=== PATIENT | female | born 1980 | race Caucasian/White ===

== ENCOUNTER 2016-07-20 12:16 | Observation (INO) | payer OTHER ==
--- NOTE | ~2016-07-20 | DS ---
Discharge Summary [facility] [address] [place]. [address] NAME: KAT MORRIS : 82 STATUS : DIS Marlon PAT#: [id number] AGE: 36 ADM/REG DATE : 07/20/16 MR#: [id number] REPORT SERV DATE: 07/22/16 DICTATED BY: SHARON TORO DATE: 07/21/16 REPORT STATUS : Draft TRANSCRIBED BY: MODL DATE: 07/21/16 ADMISSION DATE: 07/20/2016 DISCHARGE DATE: 07/21/2016 PRINCIPAL DIAGNOSIS: Drug eruption due to uncertain antibiotics. SECONDARY DIAGNOSES: Recent xook-tpkj-mtbzp disease and depression. PRESENT ILLNESS: Please see my dictation of 07/20/2016. HOSPITAL COURSE: Admitted with a drug eruption after been on sequential antibiotics for various infections, most prominent of which apparently may not have been strep throat but instead opkl-sgyf-ncqjk disease. The patient had a diffuse maculopapular rash, received steroids with substantial improvement in the rash by 07/21, and she was able to return home. She also felt better with propranolol being changed to atenolol, being non-blood brain barrier crossing in the setting of her depression. She is recommended to discontinue lisinopril, Valium, minocycline, nitrofurantoin, and ciprofloxacin until she follows up with an hospital ward clerk but that arrangements can be made through [facility] with whom she will follow up later on this week for confirmation of the rash has continued to wane. She will finish a five-day course of prednisone 40 mg. BERNADINE/OLIVIA Sharon Toro M.D. / [id number] CC: Cherie Russell M.D.
--- NOTE | ~2016-07-20 | HP ---
History And Physical [facility] [id number] [place]. [address] NAME: KAT MORRIS : 82 STATUS : ADM Marlon PAT#: [id number] AGE: 36 ADM/REG DATE : 07/20/16 MR#: [id number] REPORT SERV DATE: 07/20/16 DICTATED BY: SHARON TORO DATE: 07/20/16 REPORT STATUS : Draft TRANSCRIBED BY: MODL DATE: 07/20/16 DATE OF ADMISSION: 07/20/2016 REASON FOR ADMISSION: Drug eruption. HISTORY OF PRESENT ILLNESS: Ms. Morris is a 36-year-old female with a history of hypertension. She is status post UTI diagnosis. Three weeks ago at her primary care provider's office, received Cipro. The patient actually had some chest pain while on the Cipro, was in the emergency department at [facility] where she feels like she got influenza. Did not receive treatment for that, but as it had been too late to benefit from Tamiflu by the time she re- emerged to her primary care provider's office. However, urine still resulted pyuria, and Macrobid was prescribed on 07/10/2016 which she took until 07/16/2016. In the meantime, however on 07/14/2016 admission, noted a rash on those palms and soles of her feet, itching and burning. She followed up at the primary care provider's office on 07/15/2016. During the interim time, she had developed a sore throat. She was prescribed minocycline. The patient had already had some evidence of maculopapular rash on her trunk. This has progressed over the course of the time that she had been on the minocycline with itchiness, burning, chills, but no fever. Meanwhile, her throat feels better. There has been some joint pain and headaches. The chest pain actually persisted, but had a negative workup with a negative stress echo recently. The patient denies any more of dysuria. No diarrhea. She says the hands and feet are actually gotten much better, and do become scaly without desquamation. She notices no mouth lesions or mucous membrane lesions of her genitals. REVIEW OF SYSTEMS: The remainder of the review of systems is negative. PAST MEDICAL HISTORY: As mentioned above. Negative stress echo on 07/18/2016. MEDICATIONS: Diazepam, lisinopril, minocycline and Macrobid, all of which were new. She had been on Inderal for about a year. Also takes Seroquel and Zoloft chronically. 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 HAS A HISTORY OF ANAPHYLACTIC REACTION TO PENICILLIN, AND HAS BEEN ON AN ALLERGY TO THE DURAGESIC WELL. FAMILY HISTORY: Very strong for allergic reaction. SOCIAL HISTORY: The patient is a smoker. PHYSICAL EXAMINATION: VITAL SIGNS: At the presentation, blood pressure 137/72, pulse 91, respirations 18, afebrile, saturating 100%. GENERAL: Awake, alert, and oriented x3. No apparent distress. HEENT: Pupils are reactive to light. Extraocular movements are intact. No current deficits. Moist mucous membranes. Oropharynx, there were no lesions in her throat, nor any ulcerations of any kind. NECK: Revealed no lymphadenopathy without jugular venous distention, carotid bruits, or History And Physical [address] [address] NAME: KAT MORRIS : 82 STATUS : ADM Marlon PAT#: [id number] AGE: 36 ADM/REG DATE : 07/20/16 MR#: [id number] REPORT SERV DATE: 07/20/16 DICTATED BY: SHARON TORO DATE: 07/20/16 REPORT STATUS : Draft TRANSCRIBED BY: OLIVIA DATE: 07/20/16 goiter. CARDIAC: Regular rhythm. No murmurs, gallops, or rubs. LUNGS: Clear to auscultation bilaterally. Good excursion. ABDOMEN: Obese, nondistended and nontender. Bowel sounds normoactive. EXTREMITIES: No cyanosis, clubbing, or edema. Good pulses and capillary refill. NEUROLOGIC: Normal sensory and motor function in all four extremities. SKIN: Exam was remarkable for a diffuse maculopapular rash, particularly on her trunk, decreasing centripetally. She had some evidence of some scaly lesions on her soles, particularly very little hard to see anything on the palms where she said she has had blistering a week prior. PSYCHIATRIC: Appropriate. LABORATORY EVALUATION: Sodium 37, potassium 4.8, chloride 103, bicarb 24, BUN 14, creatinine 0.8, glucose 104. White count 20101, H and H 15/45, platelets of 175, positive for eosinophilia. ASSESSMENT/PLAN: 1. Drug eruption. It is not clear what she is allergic to as she has been exposed to many new medications in the recent past. Has a history of severe medication intolerance. In any event, all of her new medications will all be discontinued. We will treat her empirically with steroids as I believe that the maculopapular rash is a drug eruption and not scarlet fever at all. I do not believe this is consistent both either phenotypically or in terms of natural history for neither Tan-Pal syndrome nor toxic epidermal necrolysis. The question of the lesions on the palms and soles to be associated with a sore throat, I suspect she had acute twbd-fxcf-ddhtu disease, but had a false positive streptococcal test, likely could be due to her being a carrier. This seems to have resolved with the typical time course of hand, foot, and mouth. 2. Depression. Continue Seroquel and Zoloft. Propranolol, however is not recommended in depression due to crossing the blood brain barrier and having depression itself as a major side effect. We can change this to atenolol. 3. Hypertension. We will keep her off lisinopril at this time and dose the atenolol accordingly. RSM/MODL Sharon Toro M.D. / [id number] CC: Matthieu Franco Jr, MD
[2016-07-20 10:54] LABS: BASOPHILS 0.3 %; BASOPHILS ABSOLUTE 0.04 10/3/uL (0.0-0.16); EOSINOPHILS 9.2 %; EOSINOPHILS ABSOLUTE 1.17 10/3/uL (0.0-0.53); HEMATOCRIT 45.7 % (36.0-48.0); HEMOGLOBIN 15.5 g/dL (12.0-16.0); IMMATURE GRANULOCYTES 0.3 %; IMMATURE GRANULOCYTES ABSOLUTE 0.04 10/3/uL (0.0-0.11); LYMPHOCYTES 13.7 %; LYMPHOCYTES ABSOLUTE 1.74 10/3/uL (0.67-4.30); MEAN CORPUS HGB CONC 33.9 g/dL (32.0-36.0); MEAN CORPUSCULAR VOLUME 85.6 fL (80-100); MONOCYTES ABSOLUTE 0.77 10/3/uL (0.21-1.20); NEUTROPHILS 70.5 %; NEUTROPHILS ABSOLUTE 8.98 10/3/uL (2.02-8.40); PLATELET COUNT 175 10/3/uL (150-400); RBC DISTRIBUTION WIDTH 16.6 % (12.0-16.0); RED CELL COUNT 5.34 10/6/uL (4.0-5.6); WHITE BLOOD CELLS 12.7 10/3/uL (4.5-10.5)
[2016-07-20 10:55] LABS: MANUAL DIFF NO %
[2016-07-20 11:00] LABS: ASCORBIC ACID (UR NOT ORDER) NEG (NEG); BILIRUBIN, URINE NEGATIVE (NEG); ER URINALYSIS TAT 0 Hrs 14 Mins; KETONE, URINE NEGATIVE (NEG); LEUKOCYTE ESTERASE(NOT OR TRACE (NEG); NITRITE (URINE) NEG (NEG); WBC (NOT ORDERED) (RFLEX) 3 (0-5)
[2016-07-20 11:06] LABS: ALBUMIN 3.8 G/DL (3.5-5.0); BUN (BLOOD UREA NITROGEN) 14 MG/DL (6-23); CALCIUM, SERUM 8.7 MG/DL (8.5-10.4); CHLORIDE, SERUM 103 MMOL/L (96-112); CO2 (CARBON DIOXIDE) 24 MMOL/L (24-34); CREATININE 0.81 MG/DL (0.55-1.02); GFR AFRICAN AMERICAN 109 ML/MIN (>=60); GFR NON AFRICAN AMERICAN 94 ML/MIN (>=60); GLUCOSE, SERUM 83 MG/DL (60-99); SGPT(ALT) 30 U/L (5-65); SODIUM, SERUM 137 MMOL/L (135-148); TOTAL BILIRUBIN 0.5 MG/DL (0-1.2); TOTAL PROTEIN 8.1 G/DL (6.0-8.5)
[2016-07-20 11:08] LABS: A/G RATIO 0.9 (0.7-1.9); ALKALINE PHOSPHATASE 108 U/L (45-117); GLOBULIN 4.3 G/DL (2.5-4.1); POTASSIUM, SERUM 4.8 MMOL/L (3.5-5.3); SGOT(AST) 42 U/L (5-40)
[2016-07-20 11:13] LABS: ANISOCYTOSIS 1+ (5-10/OIF) (0-5/OIF); PLATELET ESTIMATE ADQ (ADEQUATE)
[2016-07-20 11:14] LABS: GIANT PLATELET OCC; TOXIC GRANULATION SLT
[~2016-07-20 12:16] MED LIST: ACET500CAP PO; BEN25 PO; DENIES HOME MEDS; I40 PO; INNOPRAN XL80 MG PO; MINOCIN100 PO; PERCOCET1 TA2 PO; PRIN10 PO; PROPYLTHIOUR50 MG OR; PROTONIX PO; SEROQUEL1C PO; SEROQUEL300 MG PO; STERAPRED DS10 MG; V2 PO; ZOL100 PO
[2016-07-20] MEDS ORDERED: MACROBID PO (12:19)
[2016-07-21 04:52] LABS: BASOPHILS 0.2 %; BASOPHILS ABSOLUTE 0.02 10/3/uL (0.0-0.16); EOSINOPHILS 0.1 %; EOSINOPHILS ABSOLUTE 0.01 10/3/uL (0.0-0.53); HEMOGLOBIN 13.3 g/dL (12.0-16.0); IMMATURE GRANULOCYTES 0.3 %; IMMATURE GRANULOCYTES ABSOLUTE 0.04 10/3/uL (0.0-0.11); LYMPHOCYTES 8.8 %; LYMPHOCYTES ABSOLUTE 1.15 10/3/uL (0.67-4.30); MEAN CORPUS HGB CONC 33.3 g/dL (32.0-36.0); MEAN CORPUSCULAR HEMOGLOB 28.7 pg (26.0-34.0); MEAN CORPUSCULAR VOLUME 86.4 fL (80-100); MEAN PLATELET VOLUME 11.3 fL (9.2-13.0); MONOCYTES 1.5 %; MONOCYTES ABSOLUTE 0.19 10/3/uL (0.21-1.20); NEUTROPHILS 89.1 %; NEUTROPHILS ABSOLUTE 11.61 10/3/uL (2.02-8.40); PLATELET COUNT 165 10/3/uL (150-400); RBC DISTRIBUTION WIDTH 16.1 % (12.0-16.0); RED CELL COUNT 4.63 10/6/uL (4.0-5.6)
[2016-07-21 04:55] LABS: MANUAL DIFF NO %
[2016-07-21] MEDS ORDERED: ATEN50 PO (15:10)
[2016-07-21] MEDS ORDERED: P20 PO (15:41)
[2016-07-21] MEDS ORDERED: AT25 PO (15:42)
[2016-11-06] MEDS ORDERED: L40 PO (14:05)
[2016-11-06] MEDS ORDERED: ZOFRAN4 PO (14:06)
[2016-11-06] MEDS ORDERED: KLOR-CON M2020 MEQ PO (14:06)
[2016-11-06] MEDS ORDERED: ATARAX50B PO (14:32)
[2016-11-09] MEDS ORDERED: ATARAX50B PO (13:20)
[2016-11-09] MEDS ORDERED: PCET PO (13:20)
[2016-11-09] MEDS ORDERED: AT25 PO (13:20)
[2016-11-09] MEDS ORDERED: ZOL100 PO (13:20)
[2016-11-09] MEDS ORDERED: L40 PO (13:21)
[2016-11-09] MEDS ORDERED: SEROQUEL300 MG PO (13:21)
[2016-11-09] MEDS ORDERED: ATEN50 PO (13:21)
[2016-11-09] MEDS ORDERED: K-TABS10 MEQ PO (13:21)
[2016-11-09] MEDS ORDERED: PROTONIX PO (13:21)
[2016-11-09] MEDS ORDERED: PR25 PO (13:22)
[2016-11-10] MEDS ORDERED: P10 PO (11:32)
[2016-11-10] MEDS ORDERED: AT25 PO (11:33)
== END 2016-07-21 15:55 | disposition home or self-care (01) ==
LOC: ER 12:16 → CDU1 12:58
PROVIDERS: Internal Medicine; Nurse Practitioner Acute Care
DX: L27.0 Generalized skin eruption due to drugs and medicaments taken internally (principal); F17.210 Nicotine dependence, cigarettes, uncomplicated; F32.9 Major depressive disorder, single episode, unspecified; I10 Essential (primary) hypertension; G43.909 Migraine, unspecified, not intractable, without status migrainosus; K21.9 Gastro-esophageal reflux disease without esophagitis; F41.9 Anxiety disorder, unspecified; Z79.899 Other long term (current) drug therapy; Z88.0 Allergy status to penicillin; Z88.8 Allergy status to other drugs, medicaments and biological substances; Z88.1 Allergy status to other antibiotic agents; Z91.041 Radiographic dye allergy status; Z98.890 Other specified postprocedural states
CPT/HCPCS: 80053; 81001; 82962; 84703; 85025; 96374; 96375; 96376; 99285; A9270-GY; G0378; J1170; J2405; J2920; J2930

== ENCOUNTER 2016-11-07 07:15 | Day surgery (SDC) | payer OTHER ==
[2016-11-06 17:40] LABS: BASOPHILS 0.2 %; BASOPHILS ABSOLUTE 0.04 10/3/uL (0.0-0.16); EOSINOPHILS 0.4 %; EOSINOPHILS ABSOLUTE 0.08 10/3/uL (0.0-0.53); HEMATOCRIT 40.6 % (36.0-48.0); HEMOGLOBIN 13.7 g/dL (12.0-16.0); IMMATURE GRANULOCYTES 0.5 %; IMMATURE GRANULOCYTES ABSOLUTE 0.09 10/3/uL (0.0-0.11); LYMPHOCYTES 8.8 %; LYMPHOCYTES ABSOLUTE 1.64 10/3/uL (0.67-4.30); MEAN CORPUS HGB CONC 33.7 g/dL (32.0-36.0); MEAN CORPUSCULAR HEMOGLOB 26.9 pg (26.0-34.0); MEAN PLATELET VOLUME 10.5 fL (9.2-13.0); MONOCYTES 5.4 %; MONOCYTES ABSOLUTE 1.01 10/3/uL (0.21-1.20); NEUTROPHILS 84.7 %; NEUTROPHILS ABSOLUTE 15.79 10/3/uL (2.02-8.40); PLATELET COUNT 177 10/3/uL (150-400); RBC DISTRIBUTION WIDTH 15.5 % (12.0-16.0)
[2016-11-06 17:41] LABS: MANUAL DIFF NO %; MEAN CORPUSCULAR VOLUME 79.6 fL (80-100); WHITE BLOOD CELLS 18.7 10/3/uL (4.5-10.5)
[2016-11-06 17:55] LABS: A/G RATIO 1.1 (0.7-1.9); ALBUMIN 4.2 G/DL (3.5-5.0); ALKALINE PHOSPHATASE 95 U/L (45-117); BUN (BLOOD UREA NITROGEN) 11 MG/DL (6-23); CALCIUM, SERUM 9.4 MG/DL (8.5-10.4); CHLORIDE, SERUM 104 MMOL/L (96-112); CO2 (CARBON DIOXIDE) 26 MMOL/L (24-34); CREATININE 1.06 MG/DL (0.55-1.02); GFR AFRICAN AMERICAN 79 ML/MIN (>=60); GFR NON AFRICAN AMERICAN 68 ML/MIN (>=60); GLOBULIN 3.9 G/DL (2.5-4.1); GLUCOSE, SERUM 114 MG/DL (60-99); SGOT(AST) 16 U/L (5-40); SGPT(ALT) 38 U/L (5-65); SODIUM, SERUM 137 MMOL/L (135-148); TOTAL BILIRUBIN 0.6 MG/DL (0-1.2); TOTAL PROTEIN 8.1 G/DL (6.0-8.5)
[2016-11-06 18:04] LABS: ASCORBIC ACID (UR NOT ORDER) 40 (NEG); BILIRUBIN, URINE NEGATIVE (NEG); KETONE, URINE NEGATIVE (NEG); LEUKOCYTE ESTERASE(NOT OR NEG (NEG); WBC (NOT ORDERED) (RFLEX) < 1 (0-5)
--- NOTE | ~2016-11-07 | OP ---
Record Of Operation [facility] [address] [place]. [address] NAME: KAT MORRIS : 82 STATUS : [facility]#: [id number] AGE: 36 ADM/REG DATE : 11/07/16 MR#: [id number] REPORT SERV DATE: 11/10/16 DICTATED BY: MADELINE SANCHEZ DATE: 11/10/16 REPORT STATUS : Draft TRANSCRIBED BY: MODL DATE: 11/10/16 DATE OF PROCEDURE: 11/07/2016 PREOPERATIVE DIAGNOSES: Gallstones with epigastric pain and vomiting. POSTOPERATIVE DIAGNOSES: Gallstones with epigastric pain and vomiting with a normal intraoperative cholangiogram. PROCEDURE: Laparoscopic cholecystectomy with intraoperative cholangiogram. ANESTHESIA: General endotracheal. ESTIMATED BLOOD LOSS: Nil. FLUIDS: Crystalloid. SPECIMEN: Gallbladder. DRAINS: None. COMPLICATIONS: None. CONDITION: Good. INDICATIONS: Ms. Morris is a 36-year-old, who was referred to office with a one- to two-week history of epigastric, left upper quadrant pain, exacerbated by p.o. intake with vomiting. She had had an office workup by her primary that revealed gallstones without cholecystitis or biliary dilation. She is on chronic antacid therapy for GERD and indicates the above symptom complex distinctly different than her reflux condition. Although, I am uncertain about the left upper quadrant pain, the epigastric pain, vomiting, and nausea. Certainly, all compatible with stone disease. After reviewing risks, benefits, options, and side effects, she wishes to proceed with cholecystectomy. At office visit, the patient had indicated plans to travel the week following office visit and was not comfortable proceeding with surgery and then her planning to go out of town immediately. She initially felt that she would likely try to pursue cholecystectomy on return from her out of town trip; however, the day of the office visit, she called back and requested surgery the day following office visit, which is the date of today's surgery. After thorough review of risks, benefits, options, and side effects, we are proceeding. 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 She again has an extensive list, has been hospitalized with skin blistering and epidermal loss with at least one documented antibiotic per patient report as well as I believe Lamictal. She is allergic to penicillin, and in light of the severity, we have elected not to give cephalosporin. I have discussed with the patient prophylactic antibiotic options. I believe that Levaquin and Flagyl are reasonable option. The patient indicates that she has taken fluoroquinolone without reaction and we therefore are going to use that for our single dose prophylactic antibiotic. Record Of Operation [facility] [address] [place]. [address] NAME: KAT MORRIS : 82 STATUS : [facility]#: [id number] AGE: 36 ADM/REG DATE : 11/07/16 MR#: [id number] REPORT SERV DATE: 11/10/16 DICTATED BY: MADELINE SANCHEZ DATE: 11/10/16 REPORT STATUS : Draft TRANSCRIBED BY: OLIVIA DATE: 11/10/16 DESCRIPTION OF PROCEDURE: After being identified, preop holding, brought to the OR, and positioned supine, general endotracheal anesthesia was induced. Time-out was performed. The abdomen was prepped and draped sterilely. Previously mentioned Levaquin and Flagyl administered without incident. Ms. Morris is quite obese. We infiltrated 0.5% Marcaine infraumbilical, made a vertical skin incision, elevated the skin with towel clips, and inserted a Veress needle into the peritoneal cavity as confirmed by saline drop test. 15-mm carbon dioxide, pneumoperitoneum was created. Veress needle was removed and a 5-mm trocar was inserted. A 30-degree laparoscope was inserted within the peritoneal cavity. There was no visceral injury. There was no acute inflammation and viscera appeared essentially normal. There was a large fatty omentum that obliterated the view to the viscera and non- inflamed gallbladder was evident. She was positioned head up, foot down, rolled right side up, and after Marcaine infiltration and appropriate skin incision, a 10-mm trocar was inserted subxiphoid, two 5 mm were inserted subcostally on the right in the midclavicular and anterior axillary line. Gallbladder was grasped and elevated. It was not inflamed. There were no adhesions. It was quite redundant. Again, due to the rather large fatty liver as well as the bulky fatty omentum, visualization of infrahepatic was somewhat limited. We confirmed that she was well strapped to the OR table and we did additional head up right side up positioning and we were able to visualize the infrahepatic space adequately. We had to re-grasp the gallbladder on two occasions to adequately retract in the area of Calot's triangle. The peritoneum along the neck of the gallbladder, left and right, was opened with a Maryland-type dissector and we carefully dissected and followed the neck of the gallbladder until it tapered to cystic duct. Cystic duct was dissected circumferential. An occlusive clip was placed across the neck. The cystic duct was adequately visualized, but it was by no means a generous exposure. It appeared that I would be able to safely perform a cholangiogram, provided I did not transect the cystic duct at the initial point of opening were this to occur, I was quite concerned it would drop away and be unfindable as there was a considerable amount of fat in the hepatic hilum. At this point, we again made a cystic ductotomy on common bile duct side of the clip and very careful to make a small opening. Cholangiogram catheter was inserted and anchored. It flushed nicely without leak. Fluoroscopy was brought on the field. There was a long narrow cystic duct that flowed into a normal caliber common bile duct and then down into the duodenum. In light of the patient's extensive allergy history with normal anatomy, no filling defects, no dilation, and contrast readily going into the duodenum, I terminated the cholangiogram at this point, not wanting to overdistend for proximal biliary visualization and perhaps inside pressure in the biliary system and reaction. Fluoroscopy was taken off the field. The gallbladder was re-retracted. Cholangiogram catheter was removed and the cystic duct was clipped occlusively x3 on the common bile duct side of cannulation. It was divided at the point of cannulation. Now, carefully dissected in Calot's triangle and identified a single dominant cystic artery. This was dissected circumferential, clipped x3, divided between the middle clip, clipped on gallbladder side. I used hook cautery, dissect the gallbladder out of the gallbladder fossa, this went smoothly without getting into the liver or the gallbladder. I am going to point out that due to the patient's obese body habitus, large fatty liver, substantial fat in the operative field, exposure was difficult. The case took twice the normal amount of time and we are Record Of [address] [place]. [address] NAME: KAT MORRIS : 82 STATUS : [facility] PAT#: [id number] AGE: 36 ADM/REG DATE : 11/07/16 MR#: [id number] REPORT SERV DATE: 11/10/16 DICTATED BY: MADELINE SANCHEZ DATE: 11/10/16 REPORT STATUS : Draft TRANSCRIBED BY: OLIVIA DATE: 11/10/16 going to do a 22 modifier. I was able to get the gallbladder out of gallbladder fossa again without getting into liver or gallbladder, but retraction required several re-grasp and orientation changes. Once the gallbladder had been excised from the liver bed, it was placed in an EndoCatch and extracted out of the subxiphoid trocar path. We now carefully suctioned all the sub and suprahepatic fluid, thoroughly inspected the operative field and there was good clip positioning. No bleeding. No evidence of bile leak. At this point, the lateral 5-mm trocars were removed with visualization through laparoscope, there was no bleeding. There was no bleeding from the subxiphoid trocar path. We now removed the infraumbilical trocar, desufflated the abdomen, and removed the 10-mm subxiphoid trocar. We could not palpate a fascial defect due to the patient's body habitus. There was clearly a tangential course through to the peritoneal cavity. I did not feel that we needed to extend the skin incision to perform fascial suturing. Dermis was now closed in all incisions with 4-0 Monocryl, followed by Benzoin, Steri-Strips, and sterile dressing. Ms. Morris tolerated surgery well. She was recovered from anesthetic, extubated, and transported to the recovery room in good condition. MAT/OLIVIA Madeline Sanchez M.D. / [id number] CC: Cherie Harris M.D.
[~2016-11-07 07:15] MED LIST changes: +AT25 PO; +ATARAX50B PO; +ATEN50 PO; +KLOR-CON M2020 MEQ PO; +L40 PO; +MACROBID PO; +P20 PO; +ZOFRAN4 PO
[2016-11-09] MEDS ORDERED: PCET PO (13:20)
[2016-11-09] MEDS ORDERED: ATARAX50B PO (13:20)
[2016-11-09] MEDS ORDERED: ZOL100 PO (13:20)
[2016-11-09] MEDS ORDERED: AT25 PO (13:20)
[2016-11-09] MEDS ORDERED: SEROQUEL300 MG PO (13:21)
[2016-11-09] MEDS ORDERED: ATEN50 PO (13:21)
[2016-11-09] MEDS ORDERED: L40 PO (13:21)
[2016-11-09] MEDS ORDERED: PROTONIX PO (13:21)
[2016-11-09] MEDS ORDERED: K-TABS10 MEQ PO (13:21)
[2016-11-09] MEDS ORDERED: PR25 PO (13:22)
[2016-11-10] MEDS ORDERED: P10 PO (11:32)
[2016-11-10] MEDS ORDERED: AT25 PO (11:33)
== END 2016-11-07 14:09 | disposition home or self-care (01) ==
LOC: SDC 07:15
PROVIDERS: Surgery
PROC: BF12YZZ Fluoroscopy of Gallbladder using Other Contrast (ICD-10-PCS; 2016-11-07)
PROC: 0FT44ZZ Resection of Gallbladder, Percutaneous Endoscopic Approach (ICD-10-PCS; principal; 2016-11-07 08:15)
DX: K80.10 Calculus of gallbladder with chronic cholecystitis without obstruction (principal); I10 Essential (primary) hypertension; E05.00 Thyrotoxicosis with diffuse goiter without thyrotoxic crisis or storm; M79.7 Fibromyalgia; F41.9 Anxiety disorder, unspecified; G43.909 Migraine, unspecified, not intractable, without status migrainosus; F32.9 Major depressive disorder, single episode, unspecified; F17.210 Nicotine dependence, cigarettes, uncomplicated; K21.9 Gastro-esophageal reflux disease without esophagitis; Z88.0 Allergy status to penicillin; Z88.6 Allergy status to analgesic agent; Z88.1 Allergy status to other antibiotic agents; Z88.8 Allergy status to other drugs, medicaments and biological substances; Z98.890 Other specified postprocedural states
CPT/HCPCS: 74300; 80053; 81001; 82150; 84703; 85025; 88304; 93005; J1170; J1200; J1580; J1956; J2250; J2405; J2550; J2710; J3010; Q9967